=== PATIENT | male | born 1950 ===

== ENCOUNTER 2016-11-29 17:31 | Emergency (ER) | payer BC, MEDICARE ==
[2016-11-29 17:42] VITALS: BMI 23.3
[2016-11-29 17:46] VITALS: RESP 18; TEMP 98.9
[2016-11-29] MEDS ORDERED: TDAP Vaccine 0.5 mL Syr IM ONE (17:53)
[2016-11-29] MEDS ORDERED: Lidocaine 1%/Epinephrine 1:100000 30 ml vial IJ ONE (17:53)
--- NOTE | 2016-11-29 18:04 | ED PDOC ---
Arrival/HPI - General Historian: Patient - History of Present Illness Time/Duration: Prior to Arrival Symptom Onset: Sudden Symptom Course: Unchanged Quality: Other Activities at Onset: Rest Context: Home - General Chief Complaint: Trauma Time Seen by Provider: 11/29/16 17:53 - History of Present Illness Narrative History of Present Illness (Text): 11/29/16 17:55 A 66 year old male presents to the emergency department complaining of localized pain to a laceration on the head. Patient states prior to arrival a glass lamp fell onto his head. He denies any loss of consciousness, neck pain, or other injuries at this time. (Mu Jasso) Past Medical History - Provider Review Nursing Documentation Reviewed: Yes - Tetanus Immunization Tetanus Immunization: Unknown - Past Medical History Past Medical History: No Previous - Psychiatric Hx Substance Use: No - Past Surgical History Past Surgical History: No Previous - Suicidal Assessment Feels Threatened In Home Enviroment: No Family/Social History - Physician Review Nursing Documentation Reviewed: Yes Family/Social History: Unknown Family HX Smoking Status: Never Smoked Hx Alcohol Use: No Hx Substance Use: No Hx Substance Use Treatment: No Allergies/Home Meds Allergies/Adverse Reactions: Allergies No Known Allergies Allergy (Verified 11/29/16 17:45) Home Medications: Home Meds Medication Instructions Recorded Confirmed No Known Home Med 11/29/16 11/29/16 Physical Exam Vital Signs Reviewed: Yes Temperature: Afebrile Blood Pressure: Hypertensive Pulse: Tachycardic Respiratory Rate: Normal Appearance: Positive for: Well-Appearing, Non-Toxic, Comfortable Pain Distress: None Mental Status: Positive for: Alert and Oriented X 3 - Physical Exam Narrative Physical Exam (Text): - Review of Systems Constitutional: pain to a laceration on the head. absent: Fatigue, Weight Change, Fevers Eyes: Normal ENT: Normal Respiratory: Normal absent: SOB, Cough, Sputum Cardiovascular: Normal absent: Chest pain, Palpitations, Syncope Gastrointestinal: Normal absent: Abdominal pain, Diarrhea, Nausea, Vomiting Genitourinary: Normal. absent: Dysuria, Frequency, Hematuria Musculoskeletal: Normal. absent: Arthralgias, Back Pain, Neck Pain Skin: Normal Neurological: Normal absent: Focal Weakness Endocrine: Normal Hemo/Lymphatic: Normal Psychiatric: Normal - Physical exam Patient appears age appropriate, speaking full sentences without difficulty - Systems Exam Head: Present: 2 cm frontal scalp vertical laceration with no active bleeding and 3-4 mm in depth. Pupils: Present: PERRL Extraocular Muscles: Present: EOMI Conjunctiva: Present: Normal Mouth: Present: Moist Mucous Membranes Neck: Present: Normal Range of Motion. No: MIDLINE TENDERNESS, Paraspinal Tenderness Respiratory/Chest: Present: Clear to Auscultation, Good Air Exchange. No: Respiratory Distress, Accessory Muscle Use, Tachypnic Cardiovascular: Present: Regular Rate and Rhythm, Normal S1, S2, Peripheral Pulses Present. No: Murmurs Abdomen: Present: Normal Bowel Sounds, No: Tenderness, Peritoneal Signs, Rebound, Guarding, Distention Back: Present: Normal Inspection. No: Midline Tenderness, Paraspinal Tenderness Upper Extremity: Present: Normal Inspection. No: Cyanosis, Edema Lower Extremity: Present: Normal Inspection. No: Edema Neurological: Present: GCS=15, Speech Normal, cranial nerves II through XII fully intact with no cerebellar abnormality, neuro-sensory fully intact. No focal neurological deficits. Skin: Present: Warm, Dry, Normal Color. No: Rashes Lymphatic: Present: OX3, NI, NC Psychiatric: Present: Alert, Oriented x 3, Normal Insight, Normal Concentration (Mu Jasso) Vital Signs Temp Pulse Resp BP Pulse Ox 11/29/16 17:45 98.9 F 112 H 18 140/95 H 96 Medical Decision Making ED Course and Treatment: 11/29/16 17:55 Impression: A 66 year old male with a laceration to the head after a lamp fell onto of his head. On physical examination the patient has a 2cm vertical laceration to the frontal scalp. Differential Diagnosis included but are not limited to: laceration vs. intracranial abnormalities Plan: -- Head CT -- TDAP, Lidocaine and Tylenol -- Reassess and disposition Progress Notes: 11/29/16 20:[address]: Creator : MORGAN ELIAS IMPRESSION: Right frontal scalp laceration, no acute intracranial abnormality 11/29/16 20:45 CT Scan HEAD W/O CONTRAST Exam Date: 11/29/16 This imaging exam was performed at [facility] EXAM: CT Head Without Intravenous Contrast CLINICAL HISTORY: 66 years old, male; Injury or trauma; Injury Glass fell on head; Initial encounter; Laceration; Consciousness not specified; Without residual foreign body; Head, generalized; Additional info: Head injury TECHNIQUE: Axial computed tomography images of the head/brain without intravenous contrast. This CT exam was performed using one or more of the following dose reduction techniques: automated exposure control, adjustment of the mA and/or kV according to patient size, and/or use of iterative reconstruction technique. EXAM DATE/TIME: 11/29/2016 6:11 PM COMPARISON: There are no prior studies for comparison. FINDINGS: Brain: Ventricles are normal in size and configuration. There is no midline shift. There is mild prominence of sulci and gyri. There are no intra-axial or extra-axial mass lesions or areas of hemorrhage. There are no abnormal fluid collections. Fair-white differentiation is maintained. Ventricles: See above. Bones: Cranial vault is intact. Soft tissues: There is right frontal scalp laceration with multiple skin miryam. Sinuses: There is no acute sinusitis. Ears and mastoids: Middle ears and mastoids are unremarkable Orbits: Orbital contents are unremarkable. IMPRESSION: Right frontal scalp laceration, no acute intracranial abnormality Dictated By: Morgan Elias MD pt in no distress no focal neurological deficits Pt states he understands to return to the ER right away for new or worsening symptoms or for inability to f/u with PMD or specialist as instructed. Patient states that he fully agrees with and understands discharge instructions. States that he agrees with the plan and disposition. Verbalized and repeated discharge instructions and plan. I have given the patient opportunity to ask any additional questions. (Mu Jasso) - RAD Interpretation Radiology Orders: 11/29/16 18:11 HEAD W/O CONTRAST [CT] Stat - Medication Orders Current Medication Orders: Discontinued Medications Acetaminophen (Tylenol 325mg Tab) 975 mg PO STAT STA Stop: 11/29/16 17:54 Last Admin: 11/29/16 18:21 Dose: 975 mg Lidocaine/Epinephrine (Lidocaine 1%/Epinephrine 1:518650 30 Ml) 30 ml IJ ONCE ONE Stop: 11/29/16 17:54 Last Admin: 11/29/16 18:21 Dose: 30 ml Tetanus/Reduced Diphtheria/Acell Pertussis (Boostrix Vaccine Inj) 0.5 ml IM .ONCE ONE Stop: 11/29/16 17:54 Last Admin: 11/29/16 18:22 Dose: 0.5 ml - Procedure PROCEDURE NOTE (Text): PROCEDURE: LACERATION REPAIR Performed by the emergency provider Location: Frontal region of head Length: 2 cm Description: clean wound edges,no foreign bodies Distal CMS: Normal. No deficits. Neurovascularly intact. Anesthesia: Lidocaine 1% Preparation: The wound was cleaned with NS and Betadyne. The area was prepped and draped in the usual sterile fashion. Exploration: The wound was explored and no foreign bodies were found. Procedure: The wound was closed with miryam. There was adequate approximation. In total, 6 miryam were used. Post-Procedure: Good closure and hemostasis. The patient tolerated the procedure well and there were no complications.CSM remains intact. Post procedure bacitracin was applied. (Quintin Joyce) - Scribe Statement The provider has reviewed the documentation as recorded by the Scribe - Scribe Statement Reva Corona Provider Scribe Attestation: All medical record entries made by the Scribe were at my direction and personally dictated by me. I have reviewed the chart and agree that the record accurately reflects my personal performance of the history, physical exam, medical decision making, and the department course for this patient. I have also personally directed, reviewed, and agree with the discharge instructions and disposition. (Mu Jasso) Disposition/Present on Arrival - Present on Arrival Any Indicators Present on Arrival: No History of DVT/PE: No History of Uncontrolled Diabetes: No Urinary Catheter: No History of Decub. Ulcer: No History Surgical Site Infection Following: None - Disposition Have Diagnosis and Disposition been Completed?: Yes Disposition Time: 20:46 Patient Plan: Discharge - Disposition Diagnosis: Scalp laceration Disposition: HOME/ ROUTINE Condition: GOOD Discharge Instructions (ExitCare): Head Injury (ED), Staple Care (ED) Additional Instructions: PLEASE TAKE OVER THE COUNTER MOTRIN OR TYLENOL FOR PAIN RETURN TO THE ER IN 7 DAYS FOR SUTURE REMOVAL RETURN TOT ER RIGHT AWAY FOR HEADACHE, NAUSEA, VOMITING, PAIN, DRAINAGE FOLLOW UP WITH YOUR PRIMARY PHYSICIAN IN 1-2 DAYS Referrals: Vahid Salcido MD [Primary Care Provider] - Follow up with primary
--- NOTE | 2016-11-29 20:33 | CT ---
EXAM: CT Head Without Intravenous Contrast CLINICAL HISTORY: 66 years old, male; Injury or trauma; Injury Glass fell on head; Initial encounter; Laceration; Consciousness not specified; Without residual foreign body; Head, generalized; Additional info: Head injury TECHNIQUE: Axial computed tomography images of the head/brain without intravenous contrast. This CT exam was performed using one or more of the following dose reduction techniques: automated exposure control, adjustment of the mA and/or kV according to patient size, and/or use of iterative reconstruction technique. EXAM DATE/TIME: 11/29/2016 6:11 PM COMPARISON: There are no prior studies for comparison. FINDINGS: Brain: Ventricles are normal in size and configuration. There is no midline shift. There is mild prominence of sulci and gyri. There are no intra-axial or extra-axial mass lesions or areas of hemorrhage. There are no abnormal fluid collections. Fair-white differentiation is maintained. Ventricles: See above. Bones: Cranial vault is intact. Soft tissues: There is right frontal scalp laceration with multiple skin miryam. Sinuses: There is no acute sinusitis. Ears and mastoids: Middle ears and mastoids are unremarkable Orbits: Orbital contents are unremarkable. IMPRESSION: Right frontal scalp laceration, no acute intracranial abnormality
[2016-11-29 20:52] VITALS: BP 128/92; PULSE 90; O2SAT 97
== END 2016-11-29 20:59 | disposition home or self-care (01) ==
LOC: ED 17:31
DX: S01.01XA Laceration without foreign body of scalp, initial encounter (principal); W20.8XXA Other cause of strike by thrown, projected or falling object, initial encounter; Z23 Encounter for immunization

== ENCOUNTER 2016-12-07 15:44 | Emergency (ER) | payer MEDICARE ==
[2016-12-07 15:49] VITALS: BMI 31.8
[2016-12-07 15:52] VITALS: BP 158/93; PULSE 94; RESP 18; TEMP 97.9; O2SAT 96
--- NOTE | 2016-12-07 16:26 | ED PDOC ---
Arrival/HPI - General Chief Complaint: Wound Check Time Seen by Provider: 12/07/16 16:23 Historian: Patient - History of Present Illness Narrative History of Present Illness (Text): 12/07/16 17:06 Patient came to ED for staple removal from his scalp area. Miryam were placed on 11/29/2016. Patient has no complains at present time. Symptom Course: Resolved Past Medical History - Provider Review Nursing Documentation Reviewed: Yes - Past History Past History: Non-Contributing - Infectious Disease Hx of Infectious Diseases: None - Tetanus Immunization Tetanus Immunization: Unknown - Past Medical History Past Medical History: No Previous - Psychiatric Hx Substance Use: No - Past Surgical History Past Surgical History: No Previous - Suicidal Assessment Feels Threatened In Home Enviroment: No Family/Social History Family/Social History: Unknown Family HX Smoking Status: Never Smoked Hx Alcohol Use: No Hx Substance Use: No Hx Substance Use Treatment: No Allergies/Home Meds Allergies/Adverse Reactions: Allergies No Known Allergies Allergy (Verified 11/29/16 17:45) Home Medications: Home Meds Medication Instructions Recorded Confirmed No Known Home Med 11/29/16 11/29/16 Review of Systems - Review of Systems Constitutional: Normal. absent: Fevers Skin: Other (no swelling, no drainage from the wound). absent: Cellulitis Physical Exam Vital Signs Reviewed: Yes Vital Signs Temp Pulse Resp BP Pulse Ox 12/07/16 15:44 97.9 F 94 H 18 158/93 H 96 Temperature: Afebrile Blood Pressure: Hypertensive Pulse: Regular Respiratory Rate: Normal Appearance: Positive for: Well-Appearing, Non-Toxic, Comfortable Pain Distress: None Mental Status: Positive for: Alert and Oriented X 3 - Systems Exam Head: Present: Other (frontal scalp with healing laceration, miryam are intact , no signs of infection). No: Tenderness, Swelling Neck: Present: Normal Range of Motion Neurological: Present: GCS=15, CN II-XII Intact, Speech Normal Psychiatric: Present: Alert, Oriented x 3, Normal Insight, Normal Concentration Medical Decision Making - Procedure PROCEDURE NOTE (Text): 12/07/16 17:12 6 miryam were removed without difficulties. Disposition/Present on Arrival - Present on Arrival Any Indicators Present on Arrival: No History of DVT/PE: No History of Uncontrolled Diabetes: No Urinary Catheter: No History of Decub. Ulcer: No History Surgical Site Infection Following: None - Disposition Have Diagnosis and Disposition been Completed?: Yes Diagnosis: Removal of staple Disposition: HOME/ ROUTINE Disposition Time: 16:24 Patient Plan: Discharge Condition: STABLE Discharge Instructions (ExitCare): Staple Care (ED) Additional Instructions: Follow up with your PMD within 1-2 days. Return to ED if feel worse. Referrals: Vahid Salcido MD [Primary Care Provider] - Follow up with primary
== END 2016-12-07 16:44 | disposition home or self-care (01) ==
LOC: ED 15:44
DX: Z48.02 Encounter for removal of sutures (principal)